=== PATIENT | male | born 1985 | race Caucasian/White ===

== ENCOUNTER → 2022-11-25 10:38 | Outpatient (BNVA) | payer MEDICAID, SELFPAY | PROVIDERS: PCP Nurse Practitioner; Visit Provider Nurse Practitioner | DX: K06.9 Disorder of gingiva and edentulous alveolar ridge, unspecified (principal); Z79.899 Other long term (current) drug therapy; F20.9 Schizophrenia, unspecified | CPT/HCPCS: 80061; 83036 ==

== ENCOUNTER 2023-11-01 15:31 | Inpatient (IN) | payer MEDICAID, SELFPAY ==
[2023-11-01 15:34] VITALS: BP 164/116; PULSE 108; RESP 17; TEMP 36.8; O2SAT 99
--- NOTE | 2023-11-01 15:35 | ECG_ITS ---
[facility] Test Date: 2023-11-01 Pat Name: Huy Packer Department: Room: Gender: Male Pattern Hand: : 1985 Requested By: Joanne Freeman Order Number: [id number] Garcia MD: Smith Joyce M.D. Measurements Intervals [place] Rate: 86 P: 64 NE: 162 QRS: 50 QRSD: 104 T: 53 QT: 363 QTc: 437 Interpretive Statements SINUS RHYTHM No previous ECG available for comparison Electronically Signed On 11-01-2023 23:25:32 CDT by Smith Joyce M.D. [email or web address]
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
[2023-11-01] MEDS: water for injection-sterile 10 ML (16:03)
[2023-11-01] MEDS: ziprasidone 20 mg/mL SDV IM (16:04)
[2023-11-01] MEDS: LORazepam 2 mg/mL INJ 1 mL IM (16:05)
[2023-11-01 16:12] LABS: Basophils # 0.1 10^3/uL (0.0-0.1); Eosinophils # 0.1 10^3/uL (0.0-0.8); Hematocrit 43.2 % (37-53); Lymphocytes # 1.4 10^3/uL (0.8-4.8); Mean Corpuscular HGB Conc 33.1 g/dL (30-55); Mean Corpuscular Hemoglobin 30.8 pg (27-33); Mean Corpuscular Volume 93.1 fl (82-101); Mean Platelet Volume 10.6 fL (7.4-10.4); Monocytes # 0.3 10^3/uL (0.2-0.9); Monocytes % 3.4 %; Neutrophils # 6.91 10^3/uL (1.8-7.7); Neutrophils % 78.3 %; Nucleated Red Blood Cells % 0 %; Platelet Count 208 10^3/cmm (157-399); Red Blood Count 4.64 10^6/uL (3.85-5.65); Red Cell Distribution Width 12.5 % (12.1-15.1); White Blood Count 8.83 10^3/uL (3.29-11.43)
[2023-11-01 16:40] LABS: Bilirubin Urine Negative (Negative); Blood Urine Negative (Negative); Glucose Urine UA Negative (Normal); Ketones Urine Negative (Negative); Leukocyte Esterase Urine Negative (Negative); Nitrate Urine Negative (Negative); Protein Urine Negative (Negative); Specific Gravity, Urine 1.017 (1.005-1.030); Urine Appearance Cloudy (CLEAR); Urine Color Yellow (Yellow); pH Urine 6.5 (5-7)
[2023-11-01 16:45] LABS: Bacteria Urine None Seen /hpf; RBC Urine 0-2 /hpf (0-2); Squamous Epithelial Cell Urine 0-5 /hpf (0-5); WBC Urine 0-5 /hpf (0-5)
[2023-11-01 16:47] LABS: Amphetamines Screen Urine Negative (Negative); Barbiturates Screen Urine Negative (Negative); Benzodiazepines Screen Urine Negative (Negative); Cocaine Screen Urine Negative (Negative); Opiate Screen Urine Negative (Negative); PCP Screen Urine Negative (Negative); THC Screen Urine Negative (Negative)
[2023-11-01 16:48] LABS: Alanine Aminotransferase 19 U/L (0-41); Alkaline Phosphatase 101 U/L (40-130); Anion Gap 13.5 (5-19); Aspartate Amino Transferase 17 U/L (0-40); Blood Urea Nitrogen 8 mg/dL (6-20); Calcium 8.3 mg/dL (8.5-10.5); Carbon Dioxide 26 mmol/L (22-29); Chloride 105 mmol/L (98-107); Globulin 2.1 g/dL (1.3-4.6); Glomerular Filtration Rate 124.9 mL/min (90-130); Glucose 95 mg/dL (65-115); Osmolality Calculated 290 mOsm/kg (285-295); Potassium 3.5 mmol/L (3.5-5.1); Sodium 141 mmol/L (136-145); Thyroid Stimulating Hormone 0.61 uIU/mL (0.27-4.20); Total Bilirubin 0.6 mg/dL (0.15-1.2); Total Protein 6.1 g/dL (6.6-8.7)
[2023-11-01 16:50] LABS: Acetaminophen < 5.0 ug/mL (10-30); Alcohol Level < 10 mg/dL (0-10); Salicylate < 0.3 mg/dL (3-10)
[2023-11-01 18:02] VITALS: BP 122/81; PULSE 61; RESP 16; O2SAT 98
[2023-11-01 18:08] VITALS: BP 131/89; PULSE 70; RESP 16; O2SAT 99
--- NOTE | 2023-11-01 18:33 | PC.NURSE ---
PT ARRIVED TO [facility] AT 1805 AND WAS READ 96 HOUR HOLD RIGHTS AT 1830 BY THIS ENGINEER SECOND ASSISTANT. SECURITY PRESENT.
[2023-11-01 19:51] VITALS: BP 102/63; PULSE 63; RESP 16; TEMP 36.5; O2SAT 98
[2023-11-02 05:21] VITALS: BP 118/77; PULSE 59; RESP 18; TEMP 36.5; O2SAT 99
--- NOTE | 2023-11-02 12:52 | PC.NURSE ---
Patient talking to someone/something that is not there. Patient state, long, quick, and nimble. Long, quick, and nimble. Like the railroad. He then appeared to respond to himself and angrily said, nimble? NO! That's what you said!
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
[2023-11-02 14:00] VITALS: BP 134/87; PULSE 87; RESP 18; TEMP 37.4; O2SAT 96
[2023-11-02] MEDS: paliperidone ER 3 mg Tablet PO (15:08)
[2023-11-02 19:50] VITALS: BP 137/85; PULSE 56; RESP 18; TEMP 36.7; O2SAT 97
[2023-11-03 05:44] VITALS: BP 142/94; PULSE 59; RESP 18; TEMP 36.3; O2SAT 98
[2023-11-03] MEDS: paliperidone ER 3 mg Tablet PO (09:11)
--- NOTE | 2023-11-03 13:29 | PC.NURSE ---
THIS NURSE SPOKE WITH PT FOR SHIFT ASSESSMENT. DURING THIS CONVERSATION THIS NURSE ASKED WHEN THE LAST TIME THIS PT HAD A BOWEL MOVEMENT PT STATED I DON'T KNOW BUT I DON'T WANT TOO. THIS NURSE ASKED WHAT PT MEANT BY NOT WANTING TO GO TO THE BATHROOM. PT THEN STATED I ONLY WANT TO GO IN AN OUTHOUSE. I DON'T WANT TO BE HOOKED ON LIFE SUPPORT. THIS NURSE EXPLAINED THAT THE TOILET IS NOT LIFE SUPPORT AND THAT HE SHOULD DEFIANTLY USE THE RESTROOM IF HE NEEDS TOO. PT THEN STATED I WANT TO USE THE OUT HOUSE AT THE [facility]. I DO NOT WANT TO TO END UP LIKE THAT PLACE, DO YOU KNOW ABOUT THAT THE WATER LOOKS LIKE CRAP ITSELF. THIS NURSE LISTENED TO PT ABD ARE AND ALL QUADRANTS WERE WNL. PT CURRENT NEEDS ARE MET AT THIS TIME.
[2023-11-03 13:53] VITALS: BP 127/83; PULSE 72; RESP 18; TEMP 36.8; O2SAT 97
[2023-11-03] MEDS: paliperidone palmitate 234 mg Syringe IM (14:02)
--- NOTE | 2023-11-03 17:35 | P.NPUPN_ITS ---
Subjective NPU 2 Subjective: 38-year-old male history of schizophreni a previously on Invega IM. The patient had continued to remain disorganized on the milieu. He reported having difficulties with paying attention. He had tolerated the Invega IM 234 mg without incident. He had remained isolative while having conversations in his room with no one who appeared present in the room. Patient continued to report confusion regarding his whereabouts and stated that he was here as a man. Mental Status Exam 2 MSE Comments: 38-year-old male who appeared older than his stated age with an extremely disheveled appearance. He is gait appeared slow and steady. He continued to have his hands in his pants engaging in less stimulation He was laughing inappropriately and appeared to be responding to internal stimuli. His speech was less slurred today and normal in volume. There appeared at times to be increased latency in his speech. His mood was described as good. His affect appeared labile and odd. His thought process was more linear although derailment was present. He did not endorse any suicidal or homicidal ideation. There was evidence of paranoia and significant ideas of reference. He was unable to provide the day date or time. He was not able to provide the place. His recent and remote memory appeared impaired. His attention span appeared poor as he appeared to be responding to internal stimuli. His insight is impaired. His judgment is poor. His impulse control appeared impaired as well. Vitals/I&O/Wt Last Vital Signs Temp 98.3 F 11/03/23 13:53 Pulse 72 11/03/23 13:53 Resp 18 11/03/23 13:53 BP 127/83 11/03/23 13:53 Pulse Ox 97 11/03/23 13:53 O2 Del Method Room Air 11/01/23 18:09 Data NPU 11/01/23 16:06 11/01/23 16:06 A&P Assessment and plan (1) Schizophrenia: Plan 38-year-old male with a history of schizophrenia currently noncompliant with his medications who presents with disorganized thinking and disorganized behavior involuntarily. He would likely benefit from restarting his medications. #1.? Engage patient in individual milieu and group therapy. #2?? Recommend sober living treatment at the highest level of care to which the patient is willing to commit #3???Invega 234mg IM given and 3mg oral invega given to help achieve steady state levels of invega. #4?? TO-15 minute checks #5?? Will attempt to gather collateral information Involuntary Hold Information 2 96 Hour Hold: 96 Hour Involuntary Admission: Yes 96 Hour Hold Ending Date: 11/05/23 96 Hour Hold Ending Time: 18:05 Attestations NPU 2 Medical Necessity Statement*: Inpatient hospitalization is medically necessary and deemed to ?be ?the clinically appropriate intervention ?at this time.? We will monitor/initiate medications and make changes as indicated.? ? The patient?s likely length of stay 7-10 days. Coding Level of Care Code Acute Code for Chg Fwd Diagnoses Schizophrenia F20.9
[2023-11-03 20:33] VITALS: BP 136/86; PULSE 64; RESP 18; TEMP 36.7; O2SAT 97
[2023-11-04 05:43] VITALS: BP 121/73; PULSE 60; RESP 18; TEMP 36.4; O2SAT 98
[2023-11-04] MEDS: paliperidone ER 3 mg Tablet PO (08:46)
--- NOTE | 2023-11-04 10:19 | PC.NURSE ---
PT CURRENTLY DENIES SI/HI/AH/VH. PT HOWEVER, CONTINUES TO APPEAR TO RESPOND TO INTERNAL STIMULI. PT EXPLAINED TO THIS NURSE THAT HE SPEAKS WITH THE ALIENS THROUGH HIS EYES WHILE POINTING AT HIS EYES STATING EYEBALLS AND THEN POINTED TO HIS EARS AND STATED THROUGH HEAR. THIS NURSE ASKED IF THAT MEANT THAT HE HEARS THEM THROUGH HIS EARS. PT SHOOK HIS HEAD YES AND THEN POINTED AT HIS EYES AGAIN AND STATED TELL THEM THROUGH EYE BALLS. THIS NURSE ASKED IF PT WAS STILL SPEAKING TO PEOPLE AND PT STATED YEAH A COUPLE. THIS NURSE ASKED IF PT COULD EXPLAIN WHO AND PT INSTEAD STATED TO THIS NURSE I'M DEVIL S THIS NURSE RESPONDED YOU ARE THE DEVIL? THE PT RESPONDED NO, DEVIL S, THE SHE DEVIL. PT THEN LOOKED TO THE CORNER OF THE ROOM AND STATED SEE I TOLD YOU. TO NOBODY. THIS NURSE ASKED PT WHEN IS THE LAST TIME HE HAD A BOWEL MOVEMENT. PT DID NOT SEEM TO UNDERSTAND SO THIS NURSE ASKED WHEN IS THE LAST TIME YOU POOPED? PT THEN STATED I DON'T. THIS NURSE ASKED WHAT PT MEANT BY HE DOESN'T HAVE POOP TO WHICH THE PT RESPONDED I DON'T AND NEITHER DO YOU. THIS NURSE GESTURED AND ASKED IF ANYTHING HAS COME OUT OF HIS BOTTOM. PT STATED NO, AND YOU DON'T EITHER. PT WAS COOPERATIVE WITH ASSESSMENT AND MEDICATIONS. PT CURRENT NEEDS ARE MET AT THIS TIME.
[2023-11-04 14:00] VITALS: BP 128/80; PULSE 79; RESP 18; TEMP 36.6; O2SAT 98
--- NOTE | 2023-11-04 17:46 | P.NPUPN_ITS ---
Subjective NPU 2 Subjective: 38-year-old male history of schizophreni a previously on Invega IM. The patient had continued to remain disorganized on the milieu. He continued to have conversations with himself while laughing inappropriately. He had somehow reported that the toilet was a life support device for him while previously having reported that the toilet was toxic in some fashion to him. He had continued to gesture oddly to himself while pacing the halls and having extended conversations lasting many minutes with himself. He had required some prompting for completion of activities of daily living. He had appeared at times preoccupied by his own sexuality and private parts. Mental Status Exam 2 MSE Comments: 38-year-old male who appeared older than his stated age with an extremely disheveled appearance. He was friendly and partially cooperative. He is gait appeared slow and steady. He was laughing inappropriately and appeared to be responding to internal stimuli. His speech was less slurred today and normal in volume. There appeared at times to be increased latency in his speech with halting speech noted. His mood was described as good. His affect appeared labile and odd. His thought process was more linear although derailment was present. He did not endorse any suicidal or homicidal ideation. There was evidence of paranoia and significant ideas of reference. He was unable to provide the day date or time. He was not able to provide the place. His recent and remote memory appeared impaired. His attention span appeared poor as he appeared to be responding to internal stimuli. His insight is impaired. His judgment is poor. His impulse control appeared impaired as well. Vitals/I&O/Wt Last Vital Signs Temp 98 F 11/04/23 14:00 Pulse 79 11/04/23 14:00 Resp 18 11/04/23 14:00 BP 128/80 11/04/23 14:00 Pulse Ox 98 11/04/23 14:00 O2 Del Method Room Air 11/01/23 18:09 Data NPU 11/01/23 16:06 11/01/23 16:06 A&P Assessment and plan (1) Schizophrenia: Plan 38-year-old male with a history of schizophrenia currently noncompliant with his medications who presents with disorganized thinking and disorganized behavior involuntarily. He would likely benefit from restarting his medications. #1.? Engage patient in individual milieu and group therapy. #2?? Recommend sober living treatment at the highest level of care to which the patient is willing to commit #3???Invega 234mg IM given and increase to 6mg oral invega given to help achieve steady state levels of invega. #4?? TO-15 minute checks #5?? Will attempt to gather collateral information Involuntary Hold Information 2 96 Hour Hold: 96 Hour Involuntary Admission: Yes 96 Hour Hold Ending Date: 11/05/23 96 Hour Hold Ending Time: 18:05 Attestations NPU 2 Medical Necessity Statement*: Inpatient hospitalization is medically necessary and deemed to ?be ?the clinically appropriate intervention ?at this time.? We will monitor/initiate medications and make changes as indicated.? ? The patient?s likely length of stay 7-10 days. Coding Level of Care Code Acute Code for Chg Fwd Diagnoses Schizophrenia F20.9
[2023-11-04 20:37] VITALS: BP 103/72; PULSE 67; RESP 18; TEMP 37; O2SAT 100
[2023-11-05 06:00] VITALS: BP 106/76; PULSE 80; RESP 18; TEMP 36.3; O2SAT 98
--- NOTE | 2023-11-05 08:32 | PC.NURSE ---
PT IN ROOM MAKING INAPPROPRIATE STATEMENTS WITH FEMALE STAFF. PT STATES YEAH YOU'RE REALLY LOOKING GOOD. THEN PT STEPPED BACK STARRING AT THIS RN LAUGHING AND MUTTERING UNDER HIS BREATH. DENIES PAIN. DENIES SI/HI. WHEN ASKED IF HAVING AVH PT STATES NOT TO BAD. WHEN ASKED TO RATE DEPRESSION AND ANXIETY 0/10 PT STATES YEAH NOT TOO BAD. SHAKES HEAD YES TO SLEEPING GOOD LAST NIGHT. PT STATES GOAL FOR THE DAY IS TO KEEP FEELING THE CONCENTRATION I FELL, I CONCENTRATE GOOD. RN ASKED IF HE NEEDED ANYTHING ELSE PT STATED AGAIN NOT THAT BAD. THEN LAUGHS INAPPROPRIATELY AND MUTTERS UNDER BREATH. PT IS OBSERVED SPEAKING TO UNSEEN OTHERS AND ANSWERING HIMSELF, POINTING OUT THINGS IN THE ROOM. PT RESPONDS TO BOTH INTERNAL AND EXTERNAL STIMULI. ALL QUESTIONS ANSWERED AND SUPPORT WAS VOICED.
[2023-11-05] MEDS: paliperidone ER 6 mg Tablet PO (09:37)
[2023-11-05 14:00] VITALS: BP 116/77; PULSE 98; RESP 18; TEMP 36.6; O2SAT 98
--- NOTE | 2023-11-05 14:17 | P.NPUPN_ITS ---
Subjective NPU 2 Subjective: 38-year-old male history of schizophreni a previously on Invega IM and oral invega 6mg daily. Patient continues to show evidence of some bizarre behavior but no stripping off of his close were noted. The patient had appeared to spend some time showering. He had continued to express some confusion regarding sexuality as he reported that someone thought that he was a woman. He appeared to have extended conversations with himself and appeared redirectable with good appetite and no threatening behavior noted. Mental Status Exam 2 MSE Comments: 38-year-old male who appeared older than his stated age with an extremely disheveled appearance. He was friendly and partially cooperative on interview. He is gait appeared slow and steady. He was laughing inappropriately and appeared to be responding to internal stimuli. His speech had some stammering with diminished rate and normal in volume. There appeared at times to be increased latency in his speech with halting speech noted. His mood was described as good. His affect appeared labile and odd. His thought process was more linear although derailment was present. He did not endorse any suicidal or homicidal ideation. There was evidence of paranoia and significant ideas of reference. He was unable to provide the day date or time. He was not able to provide the place. His recent and remote memory appeared impaired. His attention span appeared poor as he appeared to be responding to internal stimuli. His insight is impaired. His judgment is poor. His impulse control appeared impaired as well. Vitals/I&O/Wt Last Vital Signs Temp 97.3 F L 11/05/23 06:00 Pulse 80 11/05/23 06:00 Resp 18 11/05/23 06:00 BP 106/76 11/05/23 06:00 Pulse Ox 98 11/05/23 06:00 O2 Del Method Room Air 11/01/23 18:09 Data NPU 11/01/23 16:06 11/01/23 16:06 A&P Assessment and plan (1) Schizophrenia: Plan 38-year-old male with a history of schizophrenia currently noncompliant with his medications who presents with disorganized thinking and disorganized behavior involuntarily. He would likely benefit from restarting his medications. #1.? Engage patient in individual milieu and group therapy. #2?? Recommend sober living treatment at the highest level of care to which the patient is willing to commit #3???Invega 234mg IM given and continue to 6mg oral invega given to help achieve steady state levels of invega. #4?? TO-15 minute checks #5?? Will attempt to gather collateral information Involuntary Hold Information 2 96 Hour Hold: 96 Hour Involuntary Admission: Yes 96 Hour Hold Ending Date: 11/05/23 96 Hour Hold Ending Time: 18:05 Attestations NPU 2 Medical Necessity Statement*: Inpatient hospitalization is medically necessary and deemed to ?be ?the clinically appropriate intervention ?at this time.? We will monitor/initiate medications and make changes as indicated.? ? The patient?s likely length of stay 7-10 days. Coding Level of Care Code Acute Code for Chg Fwd Diagnoses Schizophrenia F20.9
[2023-11-05 20:25] VITALS: PULSE 95; RESP 18; TEMP 36.8; O2SAT 97
--- NOTE | 2023-11-05 20:27 | PC.NURSE ---
Blood pressure not obtained due to pt inability to stay still. reading instructor notified.
[2023-11-06 06:00] VITALS: BP 99/70; PULSE 104; RESP 18; TEMP 36.6; O2SAT 94
--- NOTE | 2023-11-06 08:18 | PC.NURSE ---
PT OBSERVED IN ROOM SPEAKING TO UNSEEN OTHERS AND LAUGHING INAPPROPRIATELY. WHEN ASKED WHAT HE IS LAUGHING AT PT CONTINUES TO SNICKER. DENIES SI/HI AND AVH AT THIS TIME. PT IS HAVING AUDITORY AND VISUAL HALLUCINATIONS AND IS OBSERVED RESPONDING TO INTERNAL AND EXTERNAL STIMULI. DENIES PAIN. RATES ANXIETY 2/10 AND DEPRESSION 3/10. REPORTS HE SLEPT WELL LAST NIGHT. PT STATES GOAL FOR THE DAY IS TO FEEL BETTER AND KEEP HAVING MY HEAD GET SOLID, IT USE TO NOT BE SOLID. PT WAS OBSERVED POINTING TO THE TOP OF HIS HEAD WHILE MAKING STATEMENTS. PT IS NOTED TO HAVE FLIGHT OF IDEAS. ALL QUESTIONS ANSWERED AND SUPPORT WAS VOICED.
[2023-11-06] MEDS: paliperidone ER 6 mg Tablet PO (08:20)
[2023-11-06 13:58] VITALS: BP 143/86; PULSE 84; RESP 17; TEMP 37.2; O2SAT 96
--- NOTE | 2023-11-06 13:58 | P.NPUPN_ITS ---
Subjective NPU 2 Subjective: 38-year-old male history of schizophreni a previously on Invega IM and oral invega 6mg daily. Patient had been redirectable on the milieu but continued to have extended periods of isolation with the patient engaging in conversation with himself with no one present. He was unable to provide any detailed information today regarding his whereabouts as he had nodded and smiled inappropriately when asking how his mood was today. Patient had endorsed past history of polysubstance abuse as well. He had reported having been on Invega IM on a monthly basis and reported last use one month ago. Mental Status Exam 2 MSE Comments: 38-year-old male who appeared older than his stated age with a disheveled appearance. He was friendly and partially cooperative on interview. He is gait appeared slow and steady. He was laughing inappropriately and appeared to be responding to internal stimuli. His speech had some stammering with diminished rate and normal in volume. There appeared at times to be increased latency in his speech with halting speech noted. His mood was described as great. His affect appeared euphoric at this time. His thought process was more linear although derailment was present. He did not endorse any suicidal or homicidal ideation. There was evidence of paranoia and significant ideas of reference. He was unable to provide the day date or time. He was not able to provide the place. His recent and remote memory appeared impaired. His attention span appeared poor as he appeared to be responding to internal stimuli. His insight is impaired. His judgment is poor. His impulse control appeared impaired as well. Vitals/I&O/Wt Last Vital Signs Temp 97.9 F 11/06/23 06:00 Pulse 104 H 11/06/23 06:00 Resp 18 11/06/23 06:00 BP 99/70 11/06/23 06:00 Pulse Ox 94 11/06/23 06:00 O2 Del Method Room Air 11/06/23 06:00 Weight last 48 hrs Weight 81.647 kg Data NPU 11/01/23 16:06 11/01/23 16:06 A&P Assessment and plan (1) Schizophrenia: Plan 38-year-old male with a history of schizophrenia currently noncompliant with his medications who presents with disorganized thinking and disorganized behavior involuntarily. He would likely benefit from restarting his medications. #1.? Engage patient in individual milieu and group therapy. #2?? Recommend sober living treatment at the highest level of care to which the patient is willing to commit #3???Invega 234mg IM given and continue to 6mg oral invega given to help achieve steady state levels of invega. Invega IM 156mg 2nd shot in 2-3 days. #4?? TO-15 minute checks #5?? Will attempt to gather collateral information Involuntary Hold Information 2 96 Hour Hold: 96 Hour Involuntary Admission: Yes 96 Hour Hold Ending Date: 11/05/23 96 Hour Hold Ending Time: 18:05 Attestations NPU 2 Medical Necessity Statement*: Inpatient hospitalization is medically necessary and deemed to ?be ?the clinically appropriate intervention ?at this time.? We will monitor/initiate medications and make changes as indicated.? ? The patient?s likely length of stay 5-7days. Coding Level of Care Code Acute Code for Chg Fwd Diagnoses Schizophrenia F20.9
[2023-11-06] MEDS: haloperidol 5 mg Tablet PO (19:43)
[2023-11-06 22:00] VITALS: BP 110/87; PULSE 82; RESP 18; TEMP 36.6; O2SAT 95
[2023-11-06] MEDS: hyDROXYzine 25 mg Capsule 50 MG PO (22:32)
[2023-11-06] MEDS: trazodone 50 mg Tablet PO (22:32)
--- NOTE | 2023-11-06 23:46 | PC.NURSE ---
Patient has been observed having visual hallucinations such a s stating 3 people were sitting on his lap. Patient was given Haldol PO, see MAR. Patient was still hallucinating so given Trazodone and Vistaril, see MAR and shortly after patient is observed resting in bed with eyes closed.
[2023-11-07 06:00] VITALS: BP 102/64; PULSE 89; RESP 17; O2SAT 98
[2023-11-07] MEDS: paliperidone ER 6 mg Tablet PO (08:15)
--- NOTE | 2023-11-07 08:19 | PC.NURSE ---
Morning assessment Patient denies suicidal ideation, homicidal ideation, AVH, depression, and anxiety. Patient continues to talk to self, with arm and hand gestures. Patient reports that his last BM was a few days ago. Patient denies wanting medication to help him have a BM. Patient's BS active in all four quadrants. Abdomen soft and non-tender on palpation.
[2023-11-07 14:00] VITALS: BP 118/78; PULSE 86; RESP 18; TEMP 37.1; O2SAT 96
--- NOTE | 2023-11-07 14:31 | P.NPUPN_ITS ---
Subjective NPU 2 Subjective: 38-year-old male history of schizophreni a previously on Invega IM and oral invega 6mg daily. He remains redirectable on the unit with no acts of aggression. He has been tolerating his medications. He reported no problems with sleep. He continued to have extended conversations with himself and appeared at times to be laughing but unable to described what was funny. Mental Status Exam 2 MSE Comments: 38-year-old male who appeared older than his stated age with a disheveled appearance. He was friendly and minimally cooperative on interview. He is gait appeared slow and steady. He was laughing inappropriately and appeared to be responding to internal stimuli. His speech was productive in rate and normal in volume. There appeared at times to be increased latency in his speech with halting speech noted. His mood was described as great. His affect appeared euphoric at this time. His thought process was more linear although derailment was present. He did not endorse any suicidal or homicidal ideation. There was evidence of paranoia and significant ideas of reference. He was unable to provide the day date or time. He was not able to provide the place. His recent and remote memory appeared impaired. His attention span appeared poor as he appeared to be responding to internal stimuli. His insight is impaired. His judgment is poor. His impulse control appeared impaired as well. Vitals/I&O/Wt Last Vital Signs Temp 98.7 F 11/07/23 14:00 Pulse 86 11/07/23 14:00 Resp 18 11/07/23 14:00 BP 118/78 11/07/23 14:00 Pulse Ox 96 11/07/23 14:00 O2 Del Method Room Air 11/07/23 14:00 Weight last 48 hrs Weight 79.379 kg Weight 81.647 kg Data NPU 11/01/23 16:06 11/01/23 16:06 A&P Assessment and plan (1) Schizophrenia: Plan 38-year-old male with a history of schizophrenia currently noncompliant with his medications who presents with disorganized thinking and disorganized behavior involuntarily. He would likely benefit from restarting his medications. #1.? Engage patient in individual milieu and group therapy. #2?? Recommend sober living treatment at the highest level of care to which the patient is willing to commit #3???Invega 234mg IM given and continue to 6mg oral invega given to help achieve steady state levels of invega. Invega IM 156mg 2nd shot due tommorow. #4?? TO-15 minute checks #5?? Will attempt to gather collateral information Involuntary Hold Information 2 96 Hour Hold: 96 Hour Involuntary Admission: Yes 96 Hour Hold Ending Date: 11/05/23 96 Hour Hold Ending Time: 18:05 Attestations NPU 2 Medical Necessity Statement*: Inpatient hospitalization is medically necessary and deemed to ?be ?the clinically appropriate intervention ?at this time.? We will monitor/initiate medications and make changes as indicated.? ? The patient?s likely length of stay 5-7days. Coding Level of Care Code Acute Code for Chg Fwd Diagnoses Schizophrenia F20.9
[2023-11-07] MEDS: haloperidol 5 mg Tablet PO (18:40)
--- NOTE | 2023-11-07 18:41 | PC.NURSE ---
Administered Haldol 5mg PO to patient for increased AVH and agitation. Patient took medication with no issue. Will continue to monitor.
[2023-11-07] MEDS: trazodone 50 mg Tablet PO (20:02)
[2023-11-07] MEDS: hyDROXYzine 25 mg Capsule 50 MG PO (20:02)
[2023-11-07 21:27] VITALS: BP 131/91; PULSE 79; RESP 18; O2SAT 97
[2023-11-08 06:00] VITALS: BP 96/59; PULSE 52; RESP 16; TEMP 36.6; O2SAT 98
--- NOTE | 2023-11-08 09:07 | PC.NURSE ---
OBSERVED IN ROOM HAVING VERY ANIMATED SPEECH, POINTING IN THE AIR, YELLING AND SCREAMING WHILE LAUGHING INAPPROPRIATELY. PT IS YELLING PROFANITIES AND MAKING STATEMENTS TO UNSEEN OTHERS SAYING FUCK THAT BITCH,I KNOW IT WAS HER, PT THEN LAUGHED. PT THEN STATED I FUCKING HATE THAT BITCH, YA YOU KNOW HER TOO. PT CONTINUES TO BE EVASIVE WITH ASSESSMENT AND DENIES HE SEES OR HEARS VOICES. WHICH CAN NOT BE TRUE DUE TO SEEING PT SPEAKING TO UNSEEN OTHERS SINCE ADMISSION. DENIES SI/HI AT THIS TIME. DENIES PAIN. RATES ANXIETY AND DEPRESSION 0/10. WHEN RN LEFT ROOM PT BEGAN RAMPING UP AGAIN YELLING AND CUSSING AT UNSEEN OTHERS. SUPPORT WAS VOICED.
[2023-11-08] MEDS: OLANZapine 5 mg ODT PO (09:08)
[2023-11-08] MEDS: paliperidone ER 6 mg Tablet PO (09:08)
[2023-11-08 14:00] VITALS: BP 103/66; PULSE 54; RESP 16; TEMP 36.6; O2SAT 98
[2023-11-08] MEDS: paliperidone palmitate 156 mg Syringe IM (14:49)
--- NOTE | 2023-11-08 15:49 | W.PM.NPUPNS ---
Subjective NPU Subjective: 38-year-old male history of schizophrenia previously on Invega IM and oral invega 6mg daily. The patient received a second IM Invega shot today 156 mg. He reported no problems today on the unit. The patient had not been engaging in any unusual sexualized behaviors. He had been redirectable. Previous records had supported that Invega had been helpful for him and he stated that he had missed a few months of appointments and thereby had not been receiving his antipsychotic medication. Patient had reported adequate sleep. He continued to have conversations with himself in the room and continue to minimize this with the typewriters functional tester of this note. Mental Status Exam MSE Comments: 38-year-old male who appeared older than his stated age with a disheveled appearance. He was friendly and minimally cooperative on interview. He is gait appeared slow and steady. He was laughing inappropriately and appeared to be responding to internal stimuli. His speech was productive in rate and normal in volume. There appeared at times to be increased latency in his speech. His mood was described as good. His affect appeared oddly euthymic. His thought process was more linear although derailment was present. He did not endorse any suicidal or homicidal ideation. There was evidence of paranoia and significant ideas of reference. He was unable to provide the day, date ,or time. He was able to provide the location. His recent and remote memory appeared impaired. His attention span appeared poor as he appeared to be responding to internal stimuli. His insight is impaired. His judgment is poor. His impulse control appeared impaired as well. Vitals/I&O/Wt Last Vital Signs Temp 98 F 11/08/23 14:00 Pulse 54 L 11/08/23 14:00 Resp 16 11/08/23 14:00 BP 103/66 11/08/23 14:00 Pulse Ox 98 11/08/23 14:00 O2 Del Method Room Air 11/08/23 14:00 Weight last 48 hrs Weight 79.379 kg Data NPU 11/01/23 16:06 11/01/23 16:06 A&P Assessment and plan (1) Schizophrenia: Plan 38-year-old male with a history of schizophrenia currently noncompliant with his medications who presents with disorganized thinking and disorganized behavior involuntarily. He would likely benefit from restarting his medications. #1.? Engage patient in individual milieu and group therapy. #2?? Recommend sober living treatment at the highest level of care to which the patient is willing to commit #3???Invega 234mg IM given and continue to 6mg oral invega given to help achieve steady state levels of invega. Invega IM 156mg 2nd shot due tommorow. #4?? TO-15 minute checks #5?? Will attempt to gather collateral information Involuntary Hold Information 96 Hour Hold: 96 Hour Involuntary Admission: Yes 96 Hour Hold Ending Date: 11/05/23 96 Hour Hold Ending Time: 18:05 Attestations NPU Medical Necessity Statement*: Inpatient hospitalization is medically necessary and deemed to ?be ?the clinically appropriate intervention ?at this time.? We will monitor/initiate medications and make changes as indicated.? ? The patient?s likely length of stay 5-7days. Coding Level of Care Code Acute Code for Chg Fwd Diagnoses Schizophrenia F20.9
[2023-11-08 22:00] VITALS: BP 115/74; PULSE 47; RESP 16; TEMP 36.9; O2SAT 99
[2023-11-09 06:00] VITALS: BP 107/66; PULSE 49; RESP 14; TEMP 36.7; O2SAT 94
[2023-11-09] MEDS: paliperidone ER 6 mg Tablet PO (08:39)
[2023-11-09] MEDS: OLANZapine 5 mg ODT PO (08:39)
[2023-11-09 14:00] VITALS: BP 118/79; PULSE 82; RESP 18; O2SAT 100
--- NOTE | 2023-11-09 16:39 | P.NPUPN_ITS ---
Subjective NPU 2 Subjective: 38-year-old male history of schizophreni a previously on Invega IM and oral invega 6mg daily. The patient had continued to require redirection and continued to have extended conversations with himself. He had been redirectable on the milieu. There was no evidence of aggression. He had been able to engage in conversations but continued to remain confused and continued to speak of confusion regarding his gender. The patient reported good sleep. He had reported no side effects from his Invega. Mental Status Exam 2 MSE Comments: 38-year-old male who appeared older than his stated age with a disheveled appearance. He was friendly and cooperative on interview. He is gait appeared slow and steady. He was laughing inappropriately and appeared to be responding to internal stimuli. His speech was productive in rate and normal in volume. There appeared at times to be increased latency in his speech. His mood was described as good. His affect appeared labile. His thought process was more linear although derailment was present. He did not endorse any suicidal or homicidal ideation. There was significant ideas of reference. He was unable to provide the day, date ,or time. He was able to provide the location. His recent and remote memory appeared impaired. His attention span appeared poor as he appeared to be responding to internal stimuli. His insight is impaired. His judgment is poor. His impulse control appeared impaired as well. Vitals/I&O/Wt Last Vital Signs Temp 98.1 F 11/09/23 06:00 Pulse 82 11/09/23 14:00 Resp 18 11/09/23 14:00 BP 118/79 11/09/23 14:00 Pulse Ox 100 11/09/23 14:00 O2 Del Method Room Air 11/09/23 06:00 Data NPU 11/01/23 16:06 11/01/23 16:06 A&P Assessment and plan (1) Schizophrenia: Plan 38-year-old male with a history of schizophrenia currently noncompliant with his medications who presents with disorganized thinking and disorganized behavior involuntarily. He would likely benefit from restarting his medications. #1.? Engage patient in individual milieu and group therapy. #2?? Recommend sober living treatment at the highest level of care to which the patient is willing to commit #3???Invega 234mg IM given and continue to 6mg oral invega given to help achieve steady state levels of invega. Invega IM 156mg 2nd shot given 11/08/23. #4?? TO-15 minute checks #5?? Will attempt to gather collateral information Involuntary Hold Information 2 96 Hour Hold: 96 Hour Involuntary Admission: Yes 96 Hour Hold Ending Date: 11/05/23 96 Hour Hold Ending Time: 18:05 Attestations NPU 2 Medical Necessity Statement*: Inpatient hospitalization is medically necessary and deemed to ?be ?the clinically appropriate intervention ?at this time.? We will monitor/initiate medications and make changes as indicated.? The patient?s likely length of stay 5-7days. Coding Level of Care Code Acute Code for Chg Fwd Diagnoses Schizophrenia F20.9
[2023-11-09 20:18] VITALS: BP 105/67; PULSE 50; RESP 18; TEMP 36.6; O2SAT 98
[2023-11-09] MEDS: hyDROXYzine 25 mg Capsule 50 MG PO (20:36)
[2023-11-09] MEDS: trazodone 50 mg Tablet PO (20:36)
[2023-11-10 06:00] VITALS: BP 103/73; PULSE 56; RESP 18; TEMP 36.7; O2SAT 98
[2023-11-10] MEDS: paliperidone ER 6 mg Tablet PO (08:38)
[2023-11-10 14:00] VITALS: BP 136/81; PULSE 76; RESP 15; TEMP 36.4; O2SAT 98
--- NOTE | 2023-11-10 18:29 | P.NPUPN_ITS ---
Subjective NPU 2 Subjective: 38-year-old male history of schizophreni a previously on Invega IM and oral invega 6mg daily. The patient continued to remain disorganized with poor ability to self care. He had slept well. He was friendly on the milieu and there was no acts of aggression. There was no sexualized behaviors appreciated by staff. The patient reported no side effects from his medication. Patient stated that he was here to have his medications adjusted. He had expressed desire to return to live with his aunt although the aunt had expressed some reservation with having the patient return home at this time. Mental Status Exam 2 MSE Comments: 38-year-old male who appeared older than his stated age with a disheveled appearance. He was friendly and cooperative on interview. He is gait appeared slow and steady. He was laughing inappropriately and appeared to be responding to internal stimuli. His speech was productive in rate and normal in volume. There appeared at times to be increased latency in his speech. His mood was described as good. His affect appeared labile with inappropriate laughing. His thought process was more linear although derailment was present. He did not endorse any suicidal or homicidal ideation. There was significant ideas of reference. He was unable to provide the day, date ,or time. He was able to provide the location. His recent and remote memory appeared impaired. His attention span appeared poor as he appeared to be responding to internal stimuli. His insight is impaired. His judgment is poor. His impulse control appeared impaired as well. Vitals/I&O/Wt Last Vital Signs Temp 97.5 F L 11/10/23 14:00 Pulse 76 11/10/23 14:00 Resp 15 11/10/23 14:00 BP 136/81 11/10/23 14:00 Pulse Ox 98 11/10/23 14:00 O2 Del Method Room Air 11/10/23 14:00 Data NPU 11/01/23 16:06 11/01/23 16:06 A&P Assessment and plan (1) Schizophrenia: Plan 38-year-old male with a history of schizophrenia currently noncompliant with his medications who presents with disorganized thinking and disorganized behavior involuntarily. He would likely benefit from restarting his medications. #1.? Engage patient in individual milieu and group therapy. #2?? Recommend sober living treatment at the highest level of care to which the patient is willing to commit #3???Invega 234mg IM given and continue to 6mg oral invega given to help achieve steady state levels of invega. Invega IM 156mg, 2nd shot given 11/08/23. #4?? TO-15 minute checks #5?? Will attempt to gather collateral information. Patient having slow improvement at this time. Still having disorganized thoughts and behavior. Involuntary Hold Information 2 96 Hour Hold: 96 Hour Involuntary Admission: Yes 96 Hour Hold Ending Date: 11/05/23 96 Hour Hold Ending Time: 18:05 Attestations NPU 2 Medical Necessity Statement*: Inpatient hospitalization is medically necessary and deemed to ?be ?the clinically appropriate intervention ?at this time.? We will monitor/initiate medications and make changes as indicated.? The patient?s likely length of stay 5-7days. Coding Level of Care Code Acute Code for Chg Fwd Diagnoses Schizophrenia F20.9
[2023-11-10 20:15] VITALS: BP 124/76; PULSE 93; RESP 18; TEMP 36.6; O2SAT 98
[2023-11-10] MEDS: hyDROXYzine 25 mg Capsule 50 MG PO (21:16)
[2023-11-10] MEDS: trazodone 50 mg Tablet PO (21:16)
[2023-11-11 06:28] VITALS: BP 109/71; PULSE 70; RESP 18; O2SAT 97
[2023-11-11] MEDS: paliperidone ER 6 mg Tablet PO (08:32)
[2023-11-11] MEDS: OLANZapine 5 mg ODT PO (08:32)
--- NOTE | 2023-11-11 09:59 | PC.NURSE ---
OBSERVED SPEAKING TO UNSEEN OTHERS IN ROOM, SHADOW BOXING WINDOWS AND COLE. PT IS YELLING AT UNSEEN OTHERS AND IS UPSET MY GIRL CUT HER HAIR. PT THEN YELLS THEN LAUGHS INAPPROPRIATELY. DENIE PAIN. PT DENIES SI/HI AND AVH AT THIS TIME BUT PT IS OBVIOUSLY SEEING THINGS AND HEARING VOICES, RESPONDS TO EXTERNAL STIMULI. PT SPEECH IS RAPID AND EXCESSIVE WHEN SPEAKING TO UNSEEN OTHERS IN ROOMS. RATES ANXIETY 1/10 AND DEPRESSION 0/10. MED NURSE TO GIVE ZYDIS 5MG ORDERED FOR INCREASED ANXIETY. STATED GOAL FOR THE DAY IS TO GET MORE STABILIZED. PT REMAINS EVASIVE WITH ASSESSMENT QUESTIONS. SUPPORT VOICED.
[2023-11-11 14:00] VITALS: BP 108/62; PULSE 58; RESP 17; TEMP 36.8; O2SAT 97
[2023-11-11 20:24] VITALS: BP 111/74; PULSE 56; RESP 18; TEMP 36.9; O2SAT 96
[2023-11-11] MEDS: hyDROXYzine 25 mg Capsule 50 MG PO (22:12)
[2023-11-11] MEDS: trazodone 50 mg Tablet PO (22:12)
[2023-11-12 05:36] VITALS: BP 96/63; PULSE 59; RESP 18; TEMP 36.3; O2SAT 97
[2023-11-12] MEDS: paliperidone ER 6 mg Tablet PO (08:13)
[2023-11-12] MEDS: OLANZapine 5 mg ODT PO (08:13)
--- NOTE | 2023-11-12 09:34 | PC.NURSE ---
Patient pacing around room, appears to be engaging in conversations with unseen entities. During morning assessment, patient denies AVH, depression, anxiety, SI, and HI.
--- NOTE | 2023-11-12 13:46 | PC.NURSE ---
Patient observed punching at the wall in his room. Patient yelling at himself in his reflection in the glass.
[2023-11-12] MEDS: haloperidol 5 mg Tablet PO (13:47)
[2023-11-12 14:00] VITALS: BP 112/70; PULSE 55; RESP 18; TEMP 36.8; O2SAT 98
--- NOTE | 2023-11-12 18:34 | P.NPUPN_ITS ---
Subjective NPU 2 Subjective: Patient presented today reporting that he was doing okay. He identified that he had been living in a stable situation recently but was unable to get rides to [facility] which made it so that he ended up without his medication and off of his medication and things started to decompensate. However he reports that now he and his family have options for transportation and so he feels optimistic that as he gets stable on the medication he will be able to have success once he is discharged. He denies any side effects to the medication being restarted. Mental Status Exam 2 MSE Comments: This is a slender white male in hospital scrubs with limited grooming and eye contact looking older than his stated age with somewhat disheveled appearance. No abnormal movements except for mild psychomotor retardation. Cooperative with exam in mild distress. Speech was mostly normal rate and volume but somewhat dysarthric. Mood described as all right, affect mostly congruent and euthymic. Thought process appeared linear. Thought content: Patient denies suicidal or homicidal ideation, there were no delusions reported but some possible paranoia or bizarre thinking noted, there were significant ideas of reference. He denied auditory or visual hallucinations. He was unable to provide the day, date ,or time. He was able to provide the location. His recent and remote memory appeared impaired. His attention span appeared poor as he appeared to be responding to internal stimuli. His insight is impaired. His judgment is poor. His impulse control appeared impaired as well. Vitals/I&O/Wt Last Vital Signs Temp 98.3 F 11/12/23 14:00 Pulse 55 L 11/12/23 14:00 Resp 18 11/12/23 14:00 BP 112/70 11/12/23 14:00 Pulse Ox 98 11/12/23 14:00 O2 Del Method Room Air 11/12/23 14:00 Data NPU 11/01/23 16:06 11/01/23 16:06 A&P Assessment and plan (1) Schizophrenia: Plan 38-year-old male with a history of schizophrenia currently noncompliant with his medications who presents with disorganized thinking and disorganized behavior involuntarily. He would likely benefit from restarting his medications. 1. Continue current medication. Invega 234mg IM given. Invega IM 156mg 2nd shot given 11/08/23. 2. Continue every 15 minute checks for safety. 3. Encourage individual, group and milieu therapy. 4. Encourage sober living treatment after discharge at the highest level care to which the patient is willing to commit. 5. Gather collateral information. Involuntary Hold Information 2 96 Hour Hold: 96 Hour Involuntary Admission: Yes 96 Hour Hold Ending Date: 11/05/23 96 Hour Hold Ending Time: 18:05 Attestations NPU 2 Medical Necessity Statement*: Inpatient hospitalization is medically necessary and deemed to ?be ?the clinically appropriate intervention ?at this time.? We will monitor/initiate medications and make changes as indicated.? The patient?s likely length of stay 5-7days. Coding Level of Care Code Acute Code for Chg Fwd Diagnoses Schizophrenia F20.9
[2023-11-12] MEDS: trazodone 50 mg Tablet PO (20:41)
[2023-11-12] MEDS: hyDROXYzine 25 mg Capsule 50 MG PO (20:41)
[2023-11-12 21:27] VITALS: BP 102/63; PULSE 52; RESP 17; TEMP 36.6; O2SAT 97
[2023-11-13 06:00] VITALS: BP 92/68; PULSE 99; RESP 18; TEMP 36.6; O2SAT 98
[2023-11-13] MEDS: paliperidone ER 6 mg Tablet PO (10:12)
--- NOTE | 2023-11-13 10:51 | P.NPUPN_ITS ---
Subjective NPU 2 Subjective: Patient presented today reporting that his family is reporting that they are trying to find some kind of a residential treatment/residential facility for him moving forward. He says they are aware that he would likely leave here while he is awaiting any kind of placement. He reports he is feeling much better on the medication and that he has every intention of continuing it. He reports that being here has been helpful and he denies any side effects to the medication. We continue to discuss that the social work team will be back on Wednesday and we will see start looking at clear discharge planning at that point if he continues to show steady improvement. Mental Status Exam 2 MSE Comments: This is a slender white male in hospital scrubs with limited grooming and eye contact looking older than his stated age with somewhat disheveled appearance. No abnormal movements except for mild psychomotor retardation. Cooperative with exam in mild distress. Speech was mostly normal rate and volume but somewhat dysarthric. Mood described as all right, affect mostly congruent and euthymic. Thought process appeared linear. Thought content: Patient denies suicidal or homicidal ideation, there were no delusions reported but some possible paranoia or bizarre thinking noted, there were significant ideas of reference. He denied auditory or visual hallucinations. He was unable to provide the day, date ,or time. He was able to provide the location. His recent and remote memory appeared impaired. His attention span appeared poor as he appeared to be responding to internal stimuli. His insight is impaired. His judgment is poor. His impulse control appeared impaired as well. Vitals/I&O/Wt Last Vital Signs Temp 97.9 F 11/13/23 06:00 Pulse 99 11/13/23 06:00 Resp 18 11/13/23 06:00 BP 92/68 11/13/23 06:00 Pulse Ox 98 11/13/23 06:00 O2 Del Method Room Air 11/13/23 06:00 Data NPU 11/01/23 16:06 11/01/23 16:06 A&P Assessment and plan (1) Schizophrenia: Plan 38-year-old male with a history of schizophrenia currently noncompliant with his medications who presents with disorganized thinking and disorganized behavior involuntarily. He would likely benefit from restarting his medications. 1. Continue current medication. Invega 234mg IM given. Invega IM 156mg 2nd shot given 11/08/23. Discontinue oral Invega. 2. Continue every 15 minute checks for safety. 3. Encourage individual, group and milieu therapy. 4. Encourage sober living treatment after discharge at the highest level care to which the patient is willing to commit. 5. Gather collateral information. Involuntary Hold Information 2 96 Hour Hold: 96 Hour Involuntary Admission: Yes 96 Hour Hold Ending Date: 11/05/23 96 Hour Hold Ending Time: 18:05 Attestations NPU 2 Medical Necessity Statement*: Inpatient hospitalization is medically necessary and deemed to ?be ?the clinically appropriate intervention ?at this time.? We will monitor/initiate medications and make changes as indicated.? The patient?s likely length of stay 4-6 days. Coding Level of Care Code Acute Code for g Fwd Diagnoses Schizophrenia F20.9
[2023-11-13 14:00] VITALS: BP 109/64; PULSE 82; RESP 18; TEMP 37.1; O2SAT 97
[2023-11-13 19:27] VITALS: BP 120/71; PULSE 69; RESP 18; TEMP 36.7; O2SAT 98
[2023-11-13] MEDS: trazodone 50 mg Tablet PO (21:22)
[2023-11-14 06:00] VITALS: BP 105/74; PULSE 75; RESP 18; TEMP 36.6; O2SAT 98; BMI 24.4
--- NOTE | 2023-11-14 08:36 | P.NPUPN_ITS ---
Subjective NPU 2 Subjective: Patient presented today reporting that he is feeling okay. He reports that he is hopeful that when he is better and ready for discharge that he can go. His sister has acknowledged that she will allow him to come home with her when he is ready per conversations with staff. He denies any side effects of the medication and reports he is feeling a little better each day. Mental Status Exam 2 MSE Comments: This is a slender white male in hospital scrubs with limited grooming and eye contact looking older than his stated age with somewhat disheveled appearance. No abnormal movements except for mild psychomotor retardation. Cooperative with exam in mild distress. Speech was mostly normal rate and volume but somewhat dysarthric. Mood described as all right, affect mostly congruent and euthymic. Thought process appeared linear. Thought content: Patient denies suicidal or homicidal ideation, there were no delusions reported but some possible paranoia or bizarre thinking noted, there were significant ideas of reference. He denied auditory or visual hallucinations. He was unable to provide the day, date ,or time. He was able to provide the location. His recent and remote memory appeared impaired. His attention span appeared poor as he appeared to be responding to internal stimuli. His insight is impaired. His judgment is poor. His impulse control appeared impaired as well. Vitals/I&O/Wt Last Vital Signs Temp 97.8 F 11/14/23 06:00 Pulse 75 11/14/23 06:00 Resp 18 11/14/23 06:00 BP 105/74 11/14/23 06:00 Pulse Ox 98 11/14/23 06:00 O2 Del Method Room Air 11/14/23 06:00 Weight last 48 hrs Weight 81.76 kg Data NPU 11/01/23 16:06 11/01/23 16:06 A&P Assessment and plan (1) Schizophrenia: Plan 38-year-old male with a history of schizophrenia currently noncompliant with his medications who presents with disorganized thinking and disorganized behavior involuntarily. He would likely benefit from restarting his medications. 1. Continue current medication. Invega 234mg IM given. Invega IM 156mg 2nd shot given 11/08/23. Discontinued oral Invega. 2. Continue every 15 minute checks for safety. 3. Encourage individual, group and milieu therapy. 4. Encourage sober living treatment after discharge at the highest level care to which the patient is willing to commit. 5. Gather collateral information. Involuntary Hold Information 2 96 Hour Hold: 96 Hour Involuntary Admission: Yes 96 Hour Hold Ending Date: 11/05/23 96 Hour Hold Ending Time: 18:05 Attestations NPU 2 Medical Necessity Statement*: Inpatient hospitalization is medically necessary and deemed to ?be ?the clinically appropriate intervention ?at this time.? We will monitor/initiate medications and make changes as indicated.? The patient?s likely length of stay 3-5 days. Coding Level of Care Code Acute Code for Chg Fwd Diagnoses Schizophrenia F20.9
[2023-11-14 14:00] VITALS: BP 112/68; PULSE 75; RESP 18; TEMP 37.3; O2SAT 97
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
--- NOTE | 2023-11-14 17:17 | PC.NURSE ---
THIS NURSE SPOKE WITH PT AND PT SISTER REGARDING WHETHER OR NOT PT WOULD LIKE TO LIVE WITH PT SISTER. PT STATED THAT HE WOULD LIKE TO LIVE WITH SISTER. PT ONLY CONCERNS SEEMS TO BE OBTAINING MEDICATIONS AND HAVING TRANSPORTATION. THIS NURSE EXPLAINED THAT THE PHYSICIAN CAN SEND REFILLS TO THE PHARMACY THAT BEST SUITS HIS NEXT LIVING SITUATION. PT THEN STATED THAT HE WOULD LIKE TO LIVE WITH HIS SISTER AND THAT THEY HAD BEEN TALKING ABOUT LETTING HIM MOVE BACK IN WITH HER PRIOR TO THIS HOSPITALIZATION. PT SISTER IS LOOKING TO FIND A WAY TO MAKE IT FROM [place] TO [place] TO PICK PT UP UPON DISCHARGE. PT CURRENT NEEDS ARE MET AT HIS TIME.
[2023-11-14] MEDS: hyDROXYzine 25 mg Capsule 50 MG PO (20:16)
[2023-11-14] MEDS: trazodone 50 mg Tablet PO (20:16)
[2023-11-14 21:53] VITALS: BP 122/74; PULSE 56; RESP 17; TEMP 36.6; O2SAT 98
[2023-11-15 06:00] VITALS: BP 104/70; PULSE 76; RESP 18; O2SAT 97
--- NOTE | 2023-11-15 09:04 | PC.NURSE ---
PT APPEARS TO BE MORE CLEAR THIS MORNING THAN PREVIOUS ASSESSMENTS. FLAT AFFECT IS STILL NOTED AND GUARDED AT TIMES WITH PEERS AND STAFF. DENIES SI/HI AND VH AT THIS TIME. WHEN ASKED IF HE IS SEEING ANYTHING THAT IS NOT THERE PT STATES MAYBE A LITTLE, I'M THINKING OUT LOAD. RATES ANXIETY AND DEPRESSION 0/10. DENIES PAIN. REPORTS HE SLEPT GOOD. PT STATES GOAL FOR THE DAY IS TO GO TO [facility]. RN ENCOURAGED PT TO GO TO [facility] AND INTERACT WITH PEERS AND STAFF. PT HAS NOT BEEN SEEN SPEAKING TO UNSEEN OTHERS SO FAR THIS SHIFT.. ALL QUESTIONS ANSWERED AND SUPPORT WAS VOICED.
[2023-11-15 14:00] VITALS: BP 119/71; PULSE 68; RESP 17; TEMP 36.8; O2SAT 97
--- NOTE | 2023-11-15 18:44 | W.PM.NPUPNS ---
Subjective NPU Subjective: Patient presented today reporting that he is doing better. He reports he is doing in communication with his family at this point the plan is to get him a bus ticket to get him out to them. He is looking forward to this plan and moving back with them. He reports the medication is working really well and denied any side effects to his medication. He denied any other problems. Mental Status Exam MSE Comments: This is a slender white male in hospital scrubs with limited grooming and eye contact looking older than his stated age with somewhat disheveled appearance. No abnormal movements except for mild psychomotor retardation. Cooperative with exam in mild distress. Speech was mostly normal rate and volume but somewhat dysarthric. Mood described as better, affect mostly congruent and euthymic. Thought process appeared linear. Thought content: Patient denies suicidal or homicidal ideation, there were no delusions reported or noted. He denied auditory or visual hallucinations. Attention and concentration were improving. His recent and remote memory appeared improving. His insight and judgment are limited. His impulse control appeared limited but improving. Vitals/I&O/Wt Last Vital Signs Temp 98.2 F 11/15/23 14:00 Pulse 68 11/15/23 14:00 Resp 17 11/15/23 14:00 BP 119/71 11/15/23 14:00 Pulse Ox 97 11/15/23 14:00 O2 Del Method Room Air 11/15/23 06:00 Weight last 48 hrs Weight 81.76 kg Data NPU 11/01/23 16:06 11/01/23 16:06 A&P Assessment and plan (1) Schizophrenia: Plan 38-year-old male with a history of schizophrenia currently noncompliant with his medications who presents with disorganized thinking and disorganized behavior involuntarily. He would likely benefit from restarting his medications. 1. Continue current medication. Invega 234mg IM given. Invega IM 156mg 2nd shot given 11/08/23. Discontinued oral Invega. 2. Continue every 15 minute checks for safety. 3. Encourage individual, group and milieu therapy. 4. Encourage sober living treatment after discharge at the highest level care to which the patient is willing to commit. 5. Working with family on discharge likely in the next few days with a plan for him to return to family out [place]. Involuntary Hold Information 96 Hour Hold: 96 Hour Involuntary Admission: Yes 96 Hour Hold Ending Date: 11/05/23 96 Hour Hold Ending Time: 18:05 Attestations NPU Medical Necessity Statement*: Inpatient hospitalization is medically necessary and deemed to ?be ?the clinically appropriate intervention ?at this time.? We will monitor/initiate medications and make changes as indicated.? The patient?s likely length of stay 1-4 days. Coding Level of Care Code Acute Code for Chg Fwd Diagnoses Schizophrenia F20.9
[2023-11-15 20:04] VITALS: BP 110/64; PULSE 64; RESP 16; TEMP 36.7; O2SAT 97
[2023-11-15] MEDS: trazodone 50 mg Tablet PO (20:43)
[2023-11-15] MEDS: hyDROXYzine 25 mg Capsule 50 MG PO (20:43)
[2023-11-16 06:00] VITALS: BP 113/69; PULSE 81; RESP 16; TEMP 37.2; O2SAT 96
--- NOTE | 2023-11-16 09:52 | PC.NURSE ---
Morning Assessment During morning assessment, patient stated that he is thinking out loud about things that he is going to say to his brother when he sees him. Patient denies SI, HI, AVH, depression, and anxiety. This nurse offered patient paper to help organize his thoughts. Calm during assessment.
[2023-11-16 14:00] VITALS: BP 119/72; PULSE 67; RESP 17; TEMP 36.9; O2SAT 97
--- NOTE | 2023-11-16 15:51 | P.NPUPN_ITS ---
Subjective NPU 2 Subjective: Patient presents today reporting that things are going well. He is working with the social work team and his family for the logistics for an Uber followed by [employer] bus they will end up with home in [place] with his family. He is working with the social work team on making sure that there is a quick transition to [place] [employer] so that he can continue his long-acting injectable. He expressed gratitude for the assistance and is hopeful for the future. He denied any side effects to his medications. Mental Status Exam 2 MSE Comments: This is a slender white male in hospital scrubs with limited grooming and eye contact looking older than his stated age with somewhat disheveled appearance. No abnormal movements except for mild psychomotor retardation. Cooperative with exam in mild distress. Speech was mostly normal rate and volume but somewhat dysarthric. Mood described as better, affect mostly congruent and euthymic. Thought process appeared linear. Thought content: Patient denies suicidal or homicidal ideation, there were no delusions reported or noted. He denied auditory or visual hallucinations. Attention and concentration were improving. His recent and remote memory appeared improving. His insight and judgment are limited. His impulse control appeared limited but improving. Vitals/I&O/Wt Last Vital Signs Temp 98.5 F 11/16/23 14:00 Pulse 67 11/16/23 14:00 Resp 17 11/16/23 14:00 BP 119/72 11/16/23 14:00 Pulse Ox 97 11/16/23 14:00 O2 Del Method Room Air 11/16/23 06:00 Data NPU 11/01/23 16:06 11/01/23 16:06 A&P Assessment and plan (1) Schizophrenia: Plan 38-year-old male with a history of schizophrenia currently noncompliant with his medications who presents with disorganized thinking and disorganized behavior involuntarily. He would likely benefit from restarting his medications. 1. Continue current medication. Invega 234mg IM given. Invega IM 156mg 2nd shot given 11/08/23. Discontinued oral Invega. 2. Continue every 15 minute checks for safety. 3. Encourage individual, group and milieu therapy. 4. Encourage sober living treatment after discharge at the highest level care to which the patient is willing to commit. 5. Working with family on discharge likely in the next few days with a plan for him to return to family out [place]. Awaiting logistics for likely Uber to [place] and [employer] to [place] hopefully tomorrow. Involuntary Hold Information 2 96 Hour Hold: 96 Hour Involuntary Admission: Yes 96 Hour Hold Ending Date: 11/05/23 96 Hour Hold Ending Time: 18:05 Attestations NPU 2 Medical Necessity Statement*: Inpatient hospitalization is medically necessary and deemed to ?be ?the clinically appropriate intervention ?at this time.? We will monitor/initiate medications and make changes as indicated.? The patient?s likely length of stay 1-3 days. Coding Level of Care Code Acute Code for Chg Fwd Diagnoses Schizophrenia F20.9
[2023-11-16 19:42] VITALS: BP 115/86; PULSE 96; RESP 18; TEMP 36.6; O2SAT 98
[2023-11-17 06:00] VITALS: BP 100/70; PULSE 120; RESP 18; TEMP 36.7; O2SAT 98
--- NOTE | 2023-11-17 09:15 | PC.NURSE ---
PACING DOWN HALLWAYS. PT IS MILDLY ANXIOUS ABOUT DISCHARGING TOMORROW. AFFECT IS BRIGHTER AND PT IS MORE INTERACTIVE WITH STAFF AND PEERS. DENIES SI/HI AND AVH AT THIS TIME. RATES ANXIETY AND DEPRESION 0/10. STATES GOAL IS TO FEEL BETTER AND BE BETTER. ALL QUESTIONS ANSWERED AND SUPPORT WAS VOICED.
[2023-11-17 14:00] VITALS: BP 120/79; PULSE 84; RESP 14; TEMP 36.7; O2SAT 99
--- NOTE | 2023-11-17 16:01 | W.PM.NPUPNS ---
Subjective NPU Subjective: Patient presented today reporting that he is doing well. He received his ticket from his brother and he was excited about returning to [place]. We had a lengthy discussion about the importance of them switching back to [place] Medicaid as soon as he gets there to decrease the challenges that would come from getting his next injection at the end of this month. Additionally we talked about home doing the indigent program for Invega so that he would not have any challenges moving forward. Otherwise he denied any side effects of the medication. Mental Status Exam MSE Comments: This is a slender white male in hospital scrubs with limited grooming and eye contact looking older than his stated age with somewhat disheveled appearance. No abnormal movements except for mild psychomotor retardation. Cooperative with exam in mild distress. Speech was mostly normal rate and volume but somewhat dysarthric. Mood described as better, affect mostly congruent and euthymic. Thought process appeared linear. Thought content: Patient denies suicidal or homicidal ideation, there were no delusions reported or noted. He denied auditory or visual hallucinations. Attention and concentration were improving. His recent and remote memory appeared improving. His insight and judgment are limited. His impulse control appeared limited but improving. Vitals/I&O/Wt Last Vital Signs Temp 98.0 F 11/17/23 14:00 Pulse 84 11/17/23 14:00 Resp 14 11/17/23 14:00 BP 120/79 11/17/23 14:00 Pulse Ox 99 11/17/23 14:00 O2 Del Method Room Air 11/17/23 14:00 Data NPU 11/01/23 16:06 11/01/23 16:06 A&P Assessment and plan (1) Schizophrenia: Plan 38-year-old male with a history of schizophrenia currently noncompliant with his medications who presents with disorganized thinking and disorganized behavior involuntarily. He would likely benefit from restarting his medications. 1. Continue current medication. Invega 234mg IM given. Invega IM 156mg 2nd shot given 11/08/23. Discontinued oral Invega. 2. Continue every 15 minute checks for safety. 3. Encourage individual, group and milieu therapy. 4. Encourage sober living treatment after discharge at the highest level care to which the patient is willing to commit. 5. Working with family on discharge likely in the next few days with a plan for him to [place] to [place]. Awaiting logistics for likely [employer] to [place] and [employer] to [place]. Received ticket and will be discharging in the morning. Involuntary Hold Information 96 Hour Hold: 96 Hour Involuntary Admission: Yes 96 Hour Hold Ending Date: 11/05/23 96 Hour Hold Ending Time: 18:05 Attestations NPU Medical Necessity Statement*: Inpatient hospitalization is medically necessary and deemed to ?be ?the clinically appropriate intervention ?at this time.? We will monitor/initiate medications and make changes as indicated.? The patient?s likely length of stay 1 day. Coding Level of Care Code Acute Code for Chg Fwd Diagnoses Schizophrenia F20.9
[2023-11-17 16:06] VITALS: BP 120/79; PULSE 84; RESP 14; TEMP 36.7; O2SAT 99
[2023-11-17 19:46] VITALS: BP 111/65; PULSE 64; RESP 16; TEMP 37.4; O2SAT 98
[2023-11-17] MEDS: trazodone 50 mg Tablet PO (21:11)
[2023-11-18 06:00] VITALS: BP 113/74; PULSE 75; RESP 16; TEMP 36.7; O2SAT 99
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
== END 2023-11-18 08:36 | disposition home or self-care (01) | DRG 885 ==
LOC: ER 17:15 → NP 17:57
PROVIDERS: Admitting Provider Psychiatry & Neurology Psychiatry; Emergency Provider Emergency Medicine; PCP Nurse Practitioner; Visit Provider Psychiatry & Neurology Psychiatry
DX: F20.0 Paranoid schizophrenia (principal); R45.850 Homicidal ideations; F15.90 Other stimulant use, unspecified, uncomplicated; F12.90 Cannabis use, unspecified, uncomplicated; F10.10 Alcohol abuse, uncomplicated; F17.210 Nicotine dependence, cigarettes, uncomplicated; Z91.128 Patient's intentional underdosing of medication regimen for other reason
CPT/HCPCS: 36415; 80053; 80306; 80307; 81001; 84443; 85025; 93005; 96372; 97150; 97165; 99285; J2060; J3486